=== PATIENT | male | born 1990 | race Caucasian/White ===

== ENCOUNTER 2019-04-24 21:01 | Emergency (ER) | payer BC ==
[~2019-04-24] VITALS: Ht 170.2 cm; Wt 87.7 kg
[2019-04-24 21:12] VITALS: Ht 170.2 cm; Wt 87.7 kg
[2019-04-25 00:24] VITALS: BP 122/76
== END 2019-04-25 00:24 | disposition home or self-care (01) ==
LOC: ED 21:01
DX: S16.1XXA Strain of muscle, fascia and tendon at neck level, initial encounter (principal); S50.01XA Contusion of right elbow, initial encounter; S80.01XA Contusion of right knee, initial encounter; V89.2XXA Person injured in unspecified motor-vehicle accident, traffic, initial encounter; K21.9 Gastro-esophageal reflux disease without esophagitis; R07.89 Other chest pain; R11.10 Vomiting, unspecified; Y93.I9 Activity, other involving external motion; Y92.411 Interstate highway as the place of occurrence of the external cause; Y99.8 Other external cause status
CPT/HCPCS: J1885; J7030